=== PATIENT | male | born 2000 | race Caucasian/White ===

== ENCOUNTER → 2021-03-02 | Outpatient (CLI) | payer OTHER ==
[2021-03-02 15:18] LABS: BASO % 0.5 % (0.0-1.0); EOS % 0.1 % (0.0-3.0); EOSINOPHIL,TOTAL CALCULATED 0 mm3 (0-740); HEMATOCRIT 43.9 % (42.0-52.0); HEMOGLOBIN 14.4 g/dl (13.5-17.5); LYMPH # 0.9 10^3/uL (1.5-5.0); LYMPH % 11.4 % (24.0-44.0); MEAN CORPUSCULAR HEMOGLOBIN 28.5 pg (27.0-33.0); MEAN CORPUSCULAR HGB CONC 32.8 g/dl (32.0-36.5); MEAN CORPUSCULAR VOLUME 86.8 fl (80.0-96.0); MONO # 0.3 10^3/uL (0.0-0.8); MONO % 3.5 % (2.0-8.0); NEUTROPHILS # 6.9 10^3/uL (1.5-8.5); NEUTROPHILS % 83.7 % (36.0-66.0); PLATELET COUNT, AUTOMATED 219 10^3/uL (150-450); RED BLOOD COUNT 5.06 10^6/uL (4.30-6.10); WHITE BLOOD COUNT 8.3 10^3/uL (4.0-10.0)
== END ==
LOC: M PLALAB 12:34
PROVIDERS: ATTEND Internal Medicine Pulmonary Disease
DX: J45.50 Severe persistent asthma, uncomplicated (principal)

== ENCOUNTER → 2021-03-25 | Outpatient (CLI) | payer OTHER ==
--- NOTE | 2021-03-25 14:21 | PFTRPT ---
Height: 72.00 Inches Weight: 215.00 Lbs BSA: 2.20 Diagnosis: J45.50 DATE: 03/25/2021 ORDERING PHYSICIAN: Ehsan Swanson MD Pre and post bronchodilator studies have excellent technical quality. Forced vital capacity is reduced. FEV1 is out of proportion. Obstructive index is therefore reduced. Expiratory limit of the flow-volume loop does suggest flow rate limitation. Very significant bronchodilator response is identified. Total lung capacity is normal. Residual volume is consistent with air trapping. Diffusing capacity is normal. Hemoglobin is acceptable at 14.8. Airway resistance and conductance are normal. IMPRESSION: Reversible obstructive ventilatory defect with underlying air trapping. Please correlate clinically. MTDD
== END ==
LOC: M CARPUL 13:08
PROVIDERS: ATTEND Internal Medicine Pulmonary Disease
DX: J45.50 Severe persistent asthma, uncomplicated (principal)

== ENCOUNTER 2021-04-09 10:52 | Emergency (ER) | payer OTHER ==
[~2021-04-09] VITALS: Ht 185.4 cm; Wt 100.0 kg
[2021-04-09 10:53] VITALS: BP 151/68
[2021-04-09] MEDS ORDERED: KETOROLAC 30 MG/ML 1ML VIAL IV ONE (13:10)
--- NOTE | 2021-04-09 13:30 | REP ---
INDICATION: DYSPNEA/COUGH COMPARISON: 02/08/2021. TECHNIQUE: PA/Lateral FINDINGS: Lungs: Clear, no infiltrate. Heart: Normal in size. Mediastinum: Mediastinal silhouette unremarkable. Pleural angles: Unremarkable.. Bones and soft tissues: Unremarkable. IMPRESSION: No acute pulmonary disease. <Electronically signed by Yunior Yuan > 04/09/21 [id number]
[2021-04-09 14:06] LABS: BASO # 0.1 10^3/uL (0.0-0.2); BASO % 0.7 % (0.0-1.0); EOS # 0.1 10^3/uL (0.0-0.5); EOS % 1.2 % (0.0-3.0); HEMATOCRIT 43.7 % (42.0-52.0); HEMOGLOBIN 14.8 g/dl (13.5-17.5); LYMPH # 1.9 10^3/uL (1.5-5.0); LYMPH % 18.6 % (24.0-44.0); MEAN CORPUSCULAR HGB CONC 33.9 g/dl (32.0-36.5); MEAN CORPUSCULAR VOLUME 85.7 fl (80.0-96.0); MONO # 0.7 10^3/uL (0.0-0.8); NEUTROPHILS # 7.4 10^3/uL (1.5-8.5); NEUTROPHILS % 71.7 % (36.0-66.0); PLATELET COUNT, AUTOMATED 229 10^3/uL (150-450); WHITE BLOOD COUNT 10.3 10^3/uL (4.0-10.0)
[2021-04-09 14:41] LABS: ALBUMIN 4.4 GM/DL (3.2-5.2); ALT/SGPT 22 U/L (12-78); BILIRUBIN,DIRECT 0.2 MG/DL (0.0-0.2); BILIRUBIN,TOTAL 1.3 MG/DL (0.2-1.0); NT-PRO BNP < 5 PG/ML (<125); THYROXINE (T4) 8.5 UG/DL (4.5-12.0); TOTAL PROTEIN 7.4 GM/DL (6.4-8.2)
[2021-04-09] MEDS ORDERED: IBUP80TA PO (15:34)
--- NOTE | 2021-04-09 19:24 | ECGEPIP ---
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
== END 2021-04-09 15:51 | disposition home or self-care (01) ==
LOC: M ED 10:52
DX: R07.1 Chest pain on breathing (principal); J45.909 Unspecified asthma, uncomplicated
CPT/HCPCS: 71046; 80047; 80076; 83880; 84436; 84443; 84484; 85025; 85379; 87798; 93005; 96374; 99284; J1885

== ENCOUNTER → 2021-05-17 | Outpatient (CLI) | payer OTHER ==
[~2021-05-17] MED LIST: IBUP80TA PO
[2021-05-19 19:13] LABS: ANCA-ATYPICAL <1:20 titer (Neg:<1:20); ANTI DS-DNA AB Negative (Negative); ANTINUCLEAR ANTIBODIES DIRECT Negative (Negative); CYTOPLASMIC NEUTROP AB ANCA-C <1:20 titer (Neg:<1:20); PERINUCLEAR AB ANCA-P <1:20 titer (Neg:<1:20); RNP ANTIBODIES <0.2 AI (0.0-0.9); SJOGREN'S ANTI SS-A <0.2 AI (0.0-0.9); SJOGREN'S ANTI SS-B <0.2 AI (0.0-0.9); SMITH ANTIBODIES <0.2 AI (0.0-0.9)
== END ==
LOC: M LAB 10:06
PROVIDERS: ATTEND Internal Medicine Pulmonary Disease
DX: J30.9 Allergic rhinitis, unspecified (principal)

== ENCOUNTER 2021-09-22 12:46 | Day surgery (SDC) | payer OTHER ==
[~2021-09-22] VITALS: Ht 185.4 cm; Wt 110.7 kg
[2021-09-22] MEDS ORDERED: ceFAZolin SOD 2 GM in IV 1 EA IV ONE (13:35)
[2021-09-22] MEDS ORDERED: DUPI200I SC (13:56)
[2021-09-22] MEDS ORDERED: [UNRECOGNIZED DRUG - CODE] (13:56)
[2021-09-22] MEDS ORDERED: FLUT1BLS8 IH (13:56)
[2021-09-22] MEDS ORDERED: METOCLOPRAMIDE INJ 10MG/2ML VIAL (J2765 PER 1) As Ordered ONE (18:46)
[2021-09-22] MEDS ORDERED: ONDANSETRON 4MG/2ML VIAL As Ordered ONE (18:46)
[2021-09-22] MEDS ORDERED: LIDOCAINE 2% 100MG/5ML SDV (FOR ANES.) As Ordered ONE (18:46)
[2021-09-22] MEDS ORDERED: MIDAZOLAM INJ 2MG/2ML VIAL (J2250 PER 1MG) As Ordered ONE (18:46)
[2021-09-22] MEDS ORDERED: KETOROLAC 60MG 2ML VIAL As Ordered ONE (18:46)
[2021-09-22] MEDS ORDERED: propofoL 200 MG/20 ML VIAL As Ordered ONE (18:46)
[2021-09-22] MEDS ORDERED: dexameTHASONE 4 MG/ML 1ML VIAL (J1100 PER 1MG) As Ordered ONE (18:46)
[2021-09-22] MEDS ORDERED: fentaNYL 100 MCG/2 ML INJECTION As Ordered ONE (18:46)
[2021-09-22] MEDS ORDERED: BUPIVACAINE HCL 0.25% 10ML VIAL As Ordered ONE (20:27)
[2021-09-22] MEDS ORDERED: LIDOCAINE 1% MDV 20ML VIAL As Ordered ONE (20:27)
[2021-09-22] MEDS ORDERED: LR 1,000 ML IV SCH (22:05)
[2021-09-22] MEDS ORDERED: KETOROLAC 30 MG/ML 1ML VIAL IV PRN (22:05)
[2021-09-22] MEDS ORDERED: fentaNYL 100 MCG/2 ML INJECTION IV PRN (22:05)
[2021-09-22] MEDS ORDERED: PERCOCET 5MG/325MG TAB PO PRN (22:05)
[2021-09-22] MEDS ORDERED: METOCLOPRAMIDE INJ 10MG/2ML VIAL (J2765 PER 1) IV PRN (22:05)
[2021-09-22] MEDS ORDERED: ONDANSETRON 4MG/2ML VIAL IV PRN (22:05)
[2021-09-22 22:25] VITALS: BP 165/83
== END 2021-09-22 22:39 | disposition home or self-care (01) ==
LOC: M SDC 12:46
PROVIDERS: ATTEND Orthopaedic Surgery
DX: S62.663A Nondisplaced fracture of distal phalanx of left middle finger, initial encounter for closed fracture (principal); W25.XXXA Contact with sharp glass, initial encounter; Y92.89 Other specified places as the place of occurrence of the external cause; Y93.9 Activity, unspecified; Y99.9 Unspecified external cause status; F17.290 Nicotine dependence, other tobacco product, uncomplicated; J45.909 Unspecified asthma, uncomplicated; E66.9 Obesity, unspecified; X58.XXXA Exposure to other specified factors, initial encounter
CPT/HCPCS: 11010; 11760; 26756; 73130; J0690; J1100; J1885; J2250; J2405; J2765; J3010